=== PATIENT | female | born 1940 | race Caucasian/White ===

== ENCOUNTER 2017-03-18 04:11 | Emergency (ER) | payer MEDICARE, SELFPAY ==
[2017-03-18 04:12] VITALS: BP 156/53; PULSE 95; RESP 34; TEMP 37; O2SAT 94; BMI 90.3
--- NOTE | 2017-03-18 04:31 | EKG12_ITS ---
Test Reason : Blood Pressure : / mmHG Vent. Rate : 094 BPM Atrial Rate : 094 BPM P-R Int : 196 ms QRS Dur : 092 ms QT Int : 368 ms P-R-T Axes : 052 -15 066 degrees QTc Int : 460 ms Normal sinus rhythm Voltage criteria for left ventricular hypertrophy Nonspecific T wave abnormality Abnormal ECG Confirmed by RADHA MIRELES, GRETTA ([id number]), technical writer and editor SAM MCNULTY ([id number]) on 03/21/2017 10:31:15 AM Referred By: ANANYA Confirmed By:GRETTA GARCIA MD
[2017-03-18 05:06] LABS: Absolute Neutrophil Count 4.6 X10^3/uL (2.0-7.7); Basophil# 0.02 X10^3/uL; Basophil% 0.3 % (0-1); Eosinophil# 0.12 X10^3/uL; Eosinophils% 1.8 % (0-5); Hematocrit 25.9 % (37-47); Hemoglobin 7.9 g/dl (12.0-15.0); Lymphocyte % 18.2 % (19-41); Mean Corp Hgb Conc 30.5 g/gl (32-36); Mean Corpuscular Hgb 29.7 pg (27.0-32.0); Mean Corpuscular Volume 97.4 fL (81-99); Mean Platelet Vol. 10.1 fl (6.2-12.0); Monocyte# 0.68 X10^3/uL; Monocyte% 10.3 % (0-10); Neutrophil # 4.57 X10^3/uL (2.7-7.7); Neutrophil % 69.1 % (47-70); Platelet Count 323 K/mm3 (150-450); RBC Distribution Width CV 13.1 % (11.6-14.6); RBC Distribution Width SD 43.7 fl (35.1-43.9); Red Blood Count 2.66 M/mm3 (4.2-5.4); White Blood Count 6.6 K/mm3 (4.4-11.0)
[2017-03-18 05:17] LABS: POSITIVE COUNT NO; POSITIVE DIFFERENTIAL NO; POSITIVE MORPHOLOGY NO
[2017-03-18] MEDS: 0.9% Normal Saline 1,000 ML 15 ML IV (05:22)
[2017-03-18 05:29] LABS: International Normalized Ratio 1.1; Prothrombin Time (Protime)PT. 13.7 SECONDS (11.7-14.9)
[2017-03-18 05:30] LABS: Partial Thromboplast Time 28.5 Seconds (24.1-36.2)
[2017-03-18 05:36] LABS: Anion Gap 5 (5-15); BUN 26 mg/dL (7-18); BUN/Creat Ratio 29.9 RATIO (10-20); Calcium,Total 8.4 mg/dL (8.5-10.1); Chloride 101 mmol/L (98-107); Creatinine, Serum 0.87 mg/dL (0.55-1.02); EST Glomerular Filtration Rate 67 mL/min (>60); Est Glom Filt Rate - Afr Amer 81 mL/min (>60); Estimated Creatinine Clearance 43.51 ml/min; Glucose 69 mg/dL (70-110); Potassium 4.1 mmol/L (3.5-5.1); Sodium Level 142 mmol/L (136-145)
[2017-03-18] MEDS: Dextrose 50%-Water 25 GM/50 ML DISP.SYRIN IV (05:57)
[2017-03-18 06:22] VITALS: BP 153/61; PULSE 95; RESP 28; O2SAT 95
--- NOTE | 2017-03-18 06:52 | ED.VISSUMM ---
- ER Visit Summary Date of Service: 03/18/17 Chief Complaint: Vaginal bleeding History of Present Illness: The patient is a 77 F with recent admission for pneumonia and CHF. She was evaluated for vaginal spotting have been ongoing since January. Patient was found to have left ovarian mass and elevated CA 125. She is scheduled to see Dr. Javed in [place] next week, but that appointment was now postponed due to her generalized weakness. Patient was [facility] in [facility] after having increased vaginal bleeding. She been spotting the last 2 or 3 days but tonight was passing large clots per the report. Physical Examination: Blood pressure is 156/53, temperature 98.6, heart rate 95, respiratory rate 34, pulse ox 94% on 2 L nasal cannula. Patient is obese female lying in bed. She is resting with her eyes closed. History is provided by . Heart is regular rate and rhythm. Lung sounds are grossly clear. Abdomen is soft, obese, nontender. Skin examination reveals her to be slightly pale. Test Results: EKG is sinus at 94 with no sign of acute ischemia. CBC was normal white count. Hemoglobin is 7.9. Hematocrit is 25.9. Chemistry studies reveal bicarb of 36, glucose 69, BUN 26. Coags are normal. Emergency Department Course and Treatment: On review of prior records, patient's hemoglobin levels on the and 06 March were 8.[address] Collier had seen the patient from [facility] REPRES[facility] on her last admission. I spoke Dr. Mahajan. She feels that the patient will be better served in [place] where multiple specialties are available including interventional radiology. She states that even if the patient cannot undergo a large surgery at this time, interventional radiology may be able to coil the vessel causing her bleeding. Dr. Javed has accepted the patient at [facility]. He will consult medicine to be on board as well. Treatment Plan: [] Disposition: Transfer Impression: Vaginal bleeding with known adnexal mass This note was generated with [employer] dictation software. It may contain incorrect words, spelling, and punctuation that were not noted in review of the chart prior to signing ED Disposition - Plan for ED Patient: Chief Complaint: Vag Bleeding Referrals: Shoaib Machado MD [Primary Care Provider] -
--- NOTE | 2017-03-18 06:55 | ED.DCSUM_ITS ---
- ER Visit Summary Date of Service: 03/18/17 Chief Complaint: Vaginal bleeding History of Present Illness: The patient is a 77 F with recent admission for pneumonia and CHF. She was evaluated for vaginal spotting have been ongoing since January. Patient was found to have left ovarian mass and elevated CA 125. She is scheduled to see Dr. Javed in [place] next week, but that appointment was now postponed due to her generalized weakness. Patient was sent in from the [facility] after having increased vaginal bleeding. She been spotting the last 2 or 3 days but tonight was passing large clots per the report. Physical Examination: Blood pressure is 156/53, temperature 98.6, heart rate 95 , respiratory rate 34, pulse ox 94% on 2 L nasal cannula. Patient is obese female lying in bed. She is resting with her eyes closed. History is provided by . Heart is regular rate and rhythm. Lung sounds are grossly clear. Abdomen is soft, obese, nontender. Skin examination reveals her to be slightly pale. Test Results: EKG is sinus at 94 with no sign of acute ischemia. CBC was normal white count. Hemoglobin is 7.9. Hematocrit is 25.9. Chemistry studies reveal bicarb of 36, glucose 69, BUN 26. Coags are normal. Emergency Department Course and Treatment: On review of prior records, patient' s hemoglobin levels on the and 06 March were 8.[address] Collier had seen the patient from [facility] on her last admission. I spoke Dr. Mahajan. She feels that the patient will be better served in [place] where multiple specialties are available including interventional radiology. She states that even if the patient cannot undergo a large surgery at this time, interventional radiology may be able to coil the vessel causing her bleeding. Dr. Javed has accepted the patient at [facility]. He will consult medicine to be on board as well. Treatment Plan: [] Disposition: Transfer Impression: Vaginal bleeding with known adnexal mass This note was generated with [employer] dictation software. It may contain incorrect words, spelling, and punctuation that were not noted in review of the chart prior to signing ED Disposition - Plan for ED Patient: Chief Complaint: Vag Bleeding Referrals: Shoaib Machado MD [Primary Care Provider] -
[2017-03-18 08:04] VITALS: BP 164/62; PULSE 95; RESP 24; O2SAT 97
== END 2017-03-18 08:51 | disposition short-term general hospital (02) ==
LOC: ED 05:02
PROVIDERS: Emergency Provider Emergency Medicine; Family Provider Family Medicine; PCP Family Medicine
DX: N93.9 Abnormal uterine and vaginal bleeding, unspecified (principal); N83.8 Other noninflammatory disorders of ovary, fallopian tube and broad ligament; E66.9 Obesity, unspecified; I50.9 Heart failure, unspecified; E11.9 Type 2 diabetes mellitus without complications; I10 Essential (primary) hypertension; D64.9 Anemia, unspecified; Z99.81 Dependence on supplemental oxygen; Z79.82 Long term (current) use of aspirin; Z79.4 Long term (current) use of insulin; Z79.899 Other long term (current) drug therapy
CPT/HCPCS: 80048; 85025; 85610; 85730; 86850; 86900; 93005; 96374; 99285; J7030; A4216